=== PATIENT | male | born 1940 | race Caucasian/White ===

== ENCOUNTER 2018-10-11 05:12 | Inpatient (IN) ==
[2018-10-05 14:20] LABS: HEMATOCRIT 38.8 % (42.0-52.0); HEMOGLOBIN 13.4 g/dL (14.0-18.0); MCH 31.3 PG (27-31); MCHC 34.5 g/dL (33-37); MCV 90.7 FL (81-99); MPV 9.8 FL (7.4-10.4); RBC 4.28 XMIL (4.7-6.1); RDW 12.4 % (11.5-14.5); WBC 5.42 X1000 (4.8-10.8)
[2018-10-05 14:36] LABS: AGAP 10; BUN 14 mg/dL (8-22); CALCIUM 9.3 mg/dL (8.8-10.2); CHLORIDE 94 mmol/L (98-107); COSMO 267; CREATININE 0.9 mg/dL (0.7-1.2); ESTIMATED GFR > 60; GLUCOSE 103 mg/dL (70-104); POTASSIUM 4.5 mmol/L (3.5-5.1); SODIUM 133 mmol/L (136-145); TCO2 29 mmol/L (25-35)
[2018-10-11] MEDS ORDERED: DIPRIVAN 1% ONE (06:04)
[2018-10-11] MEDS ORDERED: XYLOCAINE-MPF 2% ONE (06:04)
[2018-10-11] MEDS ORDERED: SODIUM CHLORIDE 0.9% 10 ML ONE (06:04)
[2018-10-11] MEDS ORDERED: QUELICIN (DOSE) ONE (06:04)
[2018-10-11] MEDS ORDERED: FENTANYL ONE (06:04)
[2018-10-11] MEDS ORDERED: NORCURON ONE (06:04)
[2018-10-11] MEDS ORDERED: KEFZOL 1 GM/D5W 2 GM/100 ML IVPB ONE (06:08)
[2018-10-11] MEDS ORDERED: LR 1,000 ML ONE ×3 (06:08→10:21)
[2018-10-11] MEDS ORDERED: MARCAINE 0.25% PF/EPI 1:200,000 ONE (06:30)
[2018-10-11] MEDS ORDERED: ZOFRAN ONE (07:23)
[2018-10-11] MEDS ORDERED: DECADRON ONE (07:23)
[2018-10-11] MEDS ORDERED: ROBINUL ONE ×2 (07:24→07:31)
[2018-10-11] MEDS ORDERED: NEOSTIGMINE ONE (07:24)
[2018-10-11] MEDS ORDERED: OFIRMEV 1000 MG/ISOTONIC SOLN 1,000 MG/100 ML BOTTLE ONE (07:56)
[2018-10-11] MEDS ORDERED: OXY IR PO PRN (10:30)
[2018-10-11] MEDS ORDERED: PHENERGAN IV PRN (10:30)
[2018-10-11] MEDS ORDERED: DILAUDID IV PRN (10:30)
[2018-10-11] MEDS ORDERED: SODIUM CHLORIDE 0.9% INJ PRN (10:30)
[2018-10-11] MEDS ORDERED: LR 1,000 ML IV SCH (10:30)
[2018-10-11] MEDS ORDERED: LABETALOL IV PRN (10:30)
[2018-10-11] MEDS ORDERED: BENADRYL LIQUID PO PRN (10:30)
[2018-10-11] MEDS: DILAUDID ONE ×2 (10:37→10:47)
[2018-10-11] MEDS ORDERED: PERCOCET-10 ONE (11:02)
--- NOTE | 2018-10-11 11:56 | OPERATIVE NOTE ---
PROCEDURE DATE: SURGEON: Reed Briseno MD CABINET INSTALLER: Dayo Mendoza MD PROCEDURE PERFORMED: Laparoscopic robot-assisted right radical nephrectomy. ANESTHESIA: General endotracheal. FINDINGS: Normal-appearing right kidney. The masses were covered by pararenal fat. There was a large cyst in the right upper pole. INDICATIONS FOR PROCEDURE: This 78-year-old male, with history of lymphoma, was noted to have 2 masses in the right kidney on followup. 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 DESCRIPTION OF PROCEDURE: After informed consent was obtained from the patient, and him receiving IV antibiotics, he was taken the main OR, placed in the supine position. General endotracheal anesthesia was achieved. A 16-[place] Remy catheter was passed through the patient's urethra, prostate, and bladder without difficulty. The Remy was placed to gravity drain. The patient was then placed with the right side elevated to about 30 degrees off the table with gel rolls. He was then attached to the table with safety straps and large tape. The table was then rotated all the way to his left such that he became in full flank position and then rotated all the way back to his right so that he became more in the supine position. The table was left in this position. He was prepped and draped sterilely for right flank and abdominal surgery. Pneumoperitoneum was achieved with the Veress needle. This was placed about 8 cm above the umbilicus just to the right of midline. After pneumoperitoneum was achieved, a 12 mm trocar was placed using the Visiport. A camera was then passed through the trocar and into the abdomen. The abdomen was inspected. There were mild adhesions. The robot trocars were then placed. The #1 arm was placed at the midclavicular line on the right side just below the ribcage. The #2 arm was placed in the midclavicular line below the umbilicus. The #4 arm was placed 1 handbreadth away from the #2 arm above the right anterior superior iliac spine. The grants and contracts assistant port was placed just below the umbilicus in the midline which was a 12 mm port. A 5 mm port was placed just below the xiphoid process to act as a liver retractor. After all trocars were placed, the patient was then rotated to the flank position with the right side up. The robot was docked. The procedure was started by taking down the ascending colon along the white line of Toldt. This was taken across the anterior portion of the kidney, and the ascending colon and hepatic flexure was reflected medially. The duodenum was Kocherized which exposed the vena cava. The vena cava was dissected free of tissue from its anterior surface. The gonadal vein was visualized and it was followed down inferiorly to just below the lower pole of the kidney. The dissection was then started lateral to the gonadal vein and went down to the psoas fascia. The 4th arm was then used to hold the lower pole of the kidney up. The ureter was visualized and it was dissected under and the lower pole of the kidney was dissected off the psoas muscle all the way to the sidewall. The 4th arm was then placed under the kidney that put the kidney on stretch and the tissue lateral to the vena cava was dissected up towards the renal hilum. After this was accomplished, the liver was falling down below the superior portion of the kidney. The liver retractor was placed which was a grasping forceps. It lifted the liver off the anterior surface of the kidney. The grasper grabbed the tissue lateral to the liver. The renal vein was visualized as it came off the vena cava going towards the kidney. It was sharply dissected free and encircled with a vessel loop. The renal artery was seen just below the renal vein through its pulsations, and it was sharply dissected free and encircled with a vessel loop. The vascular stapler 35 mm load was placed across the renal artery, and the renal artery was severed. The vein was accomplished similarly. The kidney was then bluntly and sharply dissected free of its bed. Where the biopsy had been performed previously, it was somewhat adhered but easily taken down. The ureter was taken down between clips. The kidney was completely removed from its bed. The area of the pedicle and around the liver was inspected. No bleeding areas were seen. Some Surgicel snow was placed in this area. The kidney was grasped at the ureter with locking grasping forceps and pulled towards the grants and contracts assistant trocar. The pneumoperitoneum was resolved. No bleeding areas were seen. The robot trocars were removed. The robot was undocked and the patient was then rotated to his right such that he became supine. The grants and contracts assistant port incision was extended to about 8 cm. The locking grasping forceps was then followed down to the kidney with the surgeon's fingers. The kidney was grasped and the kidney was brought out of the incision. The abdominal rectus fascia was reapproximated with a running suture of #1 Maxon. The 12 mm trocar that was used for the camera port, its fascia was reapproximated with a simple suture of 2-0 Vicryl. The skin was reapproximated with clips. Island dressings were placed. He tolerated the procedure well. Estimated blood loss 25 mL. The Remy catheter was removed. He did receive Ofirmev during the case which will be continued for the next 24 hours. He was taken to the recovery room in good condition. cc: Reed Briseno MD MTDD
[2018-10-11] MEDS: TRANDATE PO SCH ×3 (11:57→18:08)
[2018-10-11] MEDS: NORVASC PO SCH (11:57)
[2018-10-11] MEDS: FLOMAX PO SCH (12:05)
[2018-10-11] MEDS: KEFZOL 1 GM/D5W 1 GM/50 ML IVPB IV SCH ×2 (13:29→23:50)
[2018-10-11] MEDS: OXY IR PO PRN ×2 (13:43→18:13)
[2018-10-11] MEDS ORDERED: OFIRMEV 1000 MG/ISOTONIC SOLN 1,000 MG/100 ML BOTTLE IV PRN (15:30)
[2018-10-11] MEDS ORDERED: PEPCID PO SCH (21:00)
[2018-10-11] MEDS: PEPCID PO SCH (23:48)
[2018-10-11] MEDS: LONITEN PO SCH (23:49)
[2018-10-11] MEDS: COLACE PO SCH (23:50)
[2018-10-12 06:29] LABS: HEMATOCRIT 37.3 % (42.0-52.0); HEMOGLOBIN 12.9 g/dL (14.0-18.0); MCH 31.9 PG (27-31); MCHC 34.6 g/dL (33-37); MCV 92.1 FL (81-99); MPV 10.2 FL (7.4-10.4); RBC 4.05 XMIL (4.7-6.1); RDW 12.5 % (11.5-14.5); WBC 10.39 X1000 (4.8-10.8)
[2018-10-12 07:00] LABS: CALCIUM 8.8 mg/dL (8.8-10.2); CREATININE 1.8 mg/dL (0.7-1.2)
[2018-10-12 07:23] VITALS: BP 130/46
[2018-10-12] MEDS: NORVASC PO SCH (07:51)
[2018-10-12] MEDS: FLOMAX PO SCH (07:51)
[2018-10-12] MEDS: PEPCID PO SCH (07:51)
[2018-10-12] MEDS: COLACE PO SCH (07:51)
[2018-10-12] MEDS: LONITEN PO SCH (07:52)
[2018-10-12] MEDS: TRANDATE PO SCH (07:52)
[2018-10-12] MEDS ORDERED: NS 500 ML IV ONE (08:25)
[2018-10-12] MEDS ORDERED: SAMSCA PO ONE (08:25)
[2018-10-12] MEDS ORDERED: PERIDEX MT SCH (09:00)
== END 2018-10-12 10:20 | disposition home or self-care (01) | DRG 657 ==
LOC: SURHOLD 05:12 → 4N 08:39
PROVIDERS: ADMIT Urology; ATTEND Urology
CPT/HCPCS: 80048; 85027; 88307; 88313; 94761; 94799; A9270; J0131; J0330; J0690; J1100; J1170; J2405; J2550; J3010; J7040; J7120; S2900